=== PATIENT | male | born 1955 | race Two or more races ===

== ENCOUNTER 2023-02-06 13:21 | Observation (INO) | payer MEDICARE, OTHER ==
--- NOTE | 2023-02-06 13:54 | ED Physician Documentation ---
History of Present Illness - Stated complaint Stated Complaint: FELL,DELUSIONAL - Chief complaint Chief Complaint: General - History obtained from History obtained from: Patient, Family - Additonal information Additional information: 67-year-old gentleman who lives in [place]. A [employer] of [facility]. He has cirrhosis with hepatocellular carcinoma, by history related to Tylenol overuse chronically because of chronic back pain. He has been confused today and fell hitting his head. Daughter, from whom independent history was taken and states this is happened in the past with hypoglycemia, hypokalemia, and/or UTI. PD PAST MEDICAL HISTORY - Present Medications Home Medications: Ambulatory Orders Medication Instructions Recorded Confirmed Levothyroxine [Synthroid] 112 mcg PO QDAC 02/06/23 02/06/23 Omeprazole Magnesium 20 mg PO DAILY PM 02/06/23 02/06/23 Ondansetron HCl 4 mg PO Q6HR PRN 02/06/23 02/06/23 Potassium Chloride 10 meq PO DAILY 02/06/23 02/06/23 metFORMIN [Glucophage] 500 mg PO BIDWM 02/06/23 02/06/23 traMADol [Ultram] 50 mg PO Q4-6H 02/06/23 02/06/23 - Allergies Allergies/Adverse Reactions: Allergies Allergy/AdvReac Type Severity Reaction Status Date / Time No Known Drug Allergies Allergy Verified 02/06/23 13:42 PD ED PE NORMAL - Vitals Vital signs reviewed: Yes - General General: Other (Mildly confused and slow speech but pleasant and cooperative and in no distress.) - HEENT HEENT: PERRL - Neck Neck: Supple, no meningeal sign, No bony TTP - Cardiac Cardiac: RRR, No murmur - Respiratory Respiratory: No respiratory distress, Clear bilaterally - Abdomen Abdomen: Non tender - Neuro Neuro: No motor deficit, No sensory deficit, Other (He does have asterixis) Eye Opening: Spontaneous Motor: Obeys Commands Verbal: Confused GCS Score: 14 Results - Vitals Vitals: Vital Signs - 24 hr 02/06/23 02/06/23 02/06/23 13:28 16:09 17:12 Temperature 37.3 C Heart Rate 78 74 63 Respiratory 19 16 16 Rate Blood Pressure 132/73 H 124/84 H 118/74 O2 Saturation 100 98 100 Oxygen O2 Source Room air - Labs Labs: Laboratory Tests 0902/06/23 02/06/23 13:46 13:56 13:56 WBC 5.2 RBC 4.88 Hgb 15.5 Hct 44.5 MCV 91.2 MCH 31.8 H MCHC 34.8 RDW 13.2 Plt Count 128 L MPV 11.0 Neut # (Auto) 2.2 Lymph # (Auto) 2.3 [place] # (Auto) 0.5 Eos # (Auto) 0.1 Baso # (Auto) 0.1 Absolute Nucleated RBC 0.00 Nucleated RBC % 0.0 PT 12.2 INR 1.1 VBG pH VBG pCO2 VBG pO2 VBG HCO3 VBG Total CO2 VBG O2 Saturation VBG Base Excess Sodium Potassium Chloride Carbon Dioxide Anion Gap BUN Creatinine Estimated GFR (MDRD) Glucose POC Whole Bld Glucose 80 Calcium Magnesium Total Bilirubin AST ALT Alkaline Phosphatase Ammonia Total Protein Albumin Globulin Albumin/Globulin Ratio Lipase Urine Color Urine Clarity Urine pH Ur Specific [place] Urine Protein Urine Glucose (UA) Urine Ketones Urine Occult Blood Urine Nitrite Urine Bilirubin Urine Urobilinogen Ur Leukocyte Esterase Ur Microscopic Review Urine Culture Comments Ethyl Alcohol 02/06/23 02/06/23 02/06/23 13:56 13:56 14:50 WBC RBC Hgb Hct MCV MCH MCHC RDW Plt Count MPV Neut # (Auto) Lymph # (Auto) Stafford # (Auto) Eos # (Auto) Baso # (Auto) Absolute Nucleated RBC Nucleated RBC % PT INR VBG pH VBG pCO2 VBG pO2 VBG HCO3 VBG Total CO2 VBG O2 Saturation VBG Base Excess Sodium 143 Potassium 3.8 Chloride 115 H Carbon Dioxide 18 L Anion Gap 10.0 BUN 8 Creatinine 0.7 Estimated GFR (MDRD) 112 Glucose 94 POC Whole Bld Glucose Calcium 9.7 Magnesium 1.9 Total Bilirubin 1.6 H AST 52 H ALT 29 Alkaline Phosphatase 182 H Ammonia 108.3 H* Total Protein 7.7 Albumin 3.9 Globulin 3.8 Albumin/Globulin Ratio 1.0 Lipase 140 H Urine Color YELLOW Urine Clarity CLEAR Urine pH 7.0 Ur Specific [place] 1.010 Urine Protein NEGATIVE Urine Glucose (UA) NEGATIVE Urine Ketones NEGATIVE Urine Occult Blood NEGATIVE Urine Nitrite NEGATIVE Urine Bilirubin NEGATIVE Urine Urobilinogen 0.2 (NORMAL) Ur Leukocyte Esterase NEGATIVE Ur Microscopic Review NOT INDICATED Urine Culture Comments NOT INDICATED Ethyl Alcohol < 10.0 02/06/23 16:50 WBC RBC Hgb Hct MCV MCH MCHC RDW Plt Count MPV Neut # (Auto) Lymph # (Auto) [place] # (Auto) Eos # (Auto) Baso # (Auto) Absolute Nucleated RBC Nucleated RBC % PT INR VBG pH 7.449 H VBG pCO2 27.9 L VBG pO2 45.0 VBG HCO3 18.9 L VBG Total CO2 19.8 L VBG O2 Saturation 82.3 H VBG Base Excess -3.4 L Sodium Potassium Chloride Carbon Dioxide Anion Gap BUN Creatinine Estimated GFR (MDRD) Glucose POC Whole Bld Glucose Calcium Magnesium Total Bilirubin AST ALT Alkaline Phosphatase Ammonia Total Protein Albumin Globulin Albumin/Globulin Ratio Lipase Urine Color Urine Clarity Urine pH Ur Specific [place] Urine Protein Urine Glucose (UA) Urine Ketones Urine Occult Blood Urine Nitrite Urine Bilirubin Urine Urobilinogen Ur Leukocyte Esterase Ur Microscopic Review Urine Culture Comments Ethyl Alcohol PD Medical Decision Making - ED course ED course: 67-year-old gentleman with known cirrhosis [place] presents with confusions, delusions. He has clinical evidence of hepatic encephalopathy with asterixis and his work-up here shows a normal CBC, normal INR, chemistry panel with only mild signs of cirrhosis but does have significant elevation in his ammonia level and mild elevation in his lipase. Urinalysis and blood alcohol levels were normal/negative. He is not too encephalopathic here but is unsteady on his feet and lives in a two-story house here and seems reasonable to put him in the hospital for clearance of his hepatic encephalopathy. Discussed with the daughter they may want to have him go back to [place] sooner rather than later as his hepatologists are there. Called to Dr. Mcmahan for admission at 4:[address] Mcmahan did request a VBG as if he were acidotic it would portend a more prolonged hospital course. Departure - Departure Disposition: ED Place in Observation Clinical Impression: Hepatic encephalopathy Condition: Stable Forms: PCP List
[2023-02-06 14:02] LABS: BASOPHILS # (AUTO) 0.1 10^3/uL (0.0-0.1); BASOPHILS % (AUTO) 1.2 %; EOSINOPHILS # (AUTO) 0.1 10^3/uL (0.0-0.7); EOSINOPHILS % (AUTO) 2.3 %; HCT - HEMATOCRIT 44.5 % (42.0-52.0); HGB - HEMOGLOBIN 15.5 g/dL (14.0-18.0); LYMPHOCYTES # (AUTO) 2.3 10^3/uL (1.5-3.5); LYMPHOCYTES % (AUTO) 44.2 %; MEAN CORPUSCULAR HEMOGLOBIN 31.8 pg (27.0-31.0); MEAN CORPUSCULAR HGB CONC 34.8 g/dL (32.0-36.0); MEAN CORPUSCULAR VOLUME 91.2 fL (80.0-94.0); MONOCYTES # (AUTO) 0.5 10^3/uL (0.0-1.0); MONOCYTES % (AUTO) 9.5 %; NEUTROPHILS # (AUTO) 2.2 10^3/uL (1.5-6.6); NEUTROPHILS % (AUTO) 42.8 %; PLT - PLATELET COUNT 128 10^3/uL (130-450); RED BLOOD COUNT 4.88 10^6/uL (4.70-6.10); RED CELL DISTRIBUTION WIDTH 13.2 % (12.0-15.0); WHITE BLOOD COUNT 5.2 x10^3/uL (4.8-10.8)
[2023-02-06 14:12] LABS: INR 1.1 (0.8-1.2); PT - PROTHROMBIN TIME 12.2 secs (9.9-12.6)
[2023-02-06 14:21] LABS: ALBUMIN 3.9 g/dL (3.2-5.5); ALKALINE PHOSPHATASE 182 IU/L (42-121); ALT ALANINE AMINOTRANSFERASE 29 IU/L (10-60); AST ASPARTATE AMINOTRANSFERASE 52 IU/L (10-42); BILIRUBIN,TOTAL 1.6 mg/dL (0.2-1.0); BUN - BLOOD UREA NITROGEN 8 mg/dL (6-20); CALCIUM 9.7 mg/dL (8.5-10.3); CARBON DIOXIDE - CO2 18 mmol/L (21-32); CHLORIDE 115 mmol/L (101-111); CREATININE 0.7 mg/dL (0.6-1.3); ETOH - ETHANOL < 10.0 mg/dL; GFR - MDRD 112 (>89); GLUCOSE 94 mg/dL (74-104); LIPASE 140 U/L (11-82); MAGNESIUM 1.9 mg/dL (1.7-2.3); POTASSIUM 3.8 mmol/L (3.5-4.5); SODIUM 143 mmol/L (135-145); TOTAL PROTEIN 7.7 g/dL (6.4-8.9)
[2023-02-06 15:09] LABS: BILIRUBIN,URINE NEGATIVE (NEGATIVE); GLUCOSE, URINE (UA) NEGATIVE (NEGATIVE); KETONES,URINE (UA) NEGATIVE (NEGATIVE); LEUKOCYTE ESTERASE, URINE NEGATIVE (NEGATIVE); NITRITE,URINE NEGATIVE (NEGATIVE); OCCULT BLOOD,URINE NEGATIVE (NEGATIVE); PROTEIN,URINE NEGATIVE (NEGATIVE); UROBILINOGEN,URINE 0.2 (NORMAL) E.U./dL (NORMAL)
[2023-02-06] MEDS ORDERED: LACTULOSE 10 GM /15 ML UDC PO STA (15:14)
[2023-02-06 15:17] LABS: CLARITY,URINE CLEAR (CLEAR)
--- NOTE | 2023-02-06 16:17 | CT Report ---
PROCEDURE: HEAD WO INDICATIONS: ams TECHNIQUE: Noncontrast 4.5 mm thick angled axial sections acquired from the foramen magnum to the vertex. For r adiation dose reduction, the following was used: automated exposure control, adjustment of mA and/or kV according to patient size. COMPARISON: None. FINDINGS: Image quality: Excellent. CSF spaces: Basal cisterns are patent. No extra-axial fluid collections. Ventricles are normal in size and shape. Brain: No midline shift. No intracranial masses or hemorrhage. Scott-white matter interface is norm al. Skull and face: Calvarium and visualized facial bones are intact, without suspicious lesions. Sinuses: Visualized sinuses and mastoids are clear. IMPRESSION: 1. No acute intracranial process. Reviewed by: Evelyn Gabriel MD on 02/06/2023 4:16 PM PDT Approved by: Evelyn Gabriel MD on 02/06/2023 4:16 PM PDT Station ID: [id number]
[2023-02-06 16:55] LABS: VBG BASE EXCESS -3.4 mmol/L (-2 - +2); VBG HCO3 18.9 mmol/L (23-28); VBG OXYGEN SATURATION 82.3 % (60-80); VBG PCO2 27.9 mmHg (41-51); VBG PH 7.449 (7.31-7.41); VBG TOTAL CO2 19.8 mmol/L (24-29)
[2023-02-06] MEDS ORDERED: SODIUM CHLORIDE FLUSH 0.9% 10 ML SYRINGE IVP PRN (16:57)
[2023-02-06] MEDS ORDERED: ONDANSETRON 4 MG/2 ML VIAL IVP PRN (16:57)
--- NOTE | 2023-02-06 17:09 | HISTORY & PHYSICAL EXAMINATION ---
Chief Complaint - Chief Complaint Chief Complaint: Confused, fell at home History of Present Illness - Admitted From Admitted From:: ED - History Obtained From History obtained from: ED provider - History of Present Illness HPI Comment/Other: This is a 67-year-old male of [facility] origin who lives in [place] and is visiting here. He has a history of cirrhosis and hepatic carcinoma from Tylenol overuse. 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 There is presumably a history of diabetes since he takes metformin and presumably a history of hypothyroidism since he takes Synthroid. He was brought in today after he was more confused than normal and fell at home. The daughter gave the entire history. She says when he is confused like this in the past he has had hypokalemia, low glucose levels or a UTI. The patient cannot remember how he fell and does not realize that he is more confused, when I speak to him. He has normal potassium, glucose levels and UA here. He was found to have mild elevation of LFTs and lipase and a very high serum ammonia level of 108. His electrolytes show a low bicarb of 18 but VBG shows normal pH of 7.44. The ED provider spoke to me about this patient. He will be placed in Observation status to manage his confusion presumably from hepatic encephalopathy and be evaluated for causes for his fall. History - Past Medical History Cardiovascular: reports: None Respiratory: reports: None Neuro: reports: Other (Prior confusion, possibly prior hepatic encephalopathy) Endocrine/Autoimmune: reports: Type 2 diabetes, HyPOthyroidism GI: reports: Cirrhosis, Other (Hepatic CA) : reports: None HEENT: reports: None Psych: reports: None Musculoskeletal: reports: None Derm: reports: None - Family & Social History Living arrangement: At home Living Situation: With spouse/s.o. Social History Notes: He quit smoking 20 years ago. He quit drinking alcohol 30 years ago. Meds/Allgy - Home Medications Home Medications: Ambulatory Orders Medication Instructions Recorded Confirmed Levothyroxine [Synthroid] 112 mcg PO QDAC 02/06/23 02/06/23 Omeprazole Magnesium 20 mg PO DAILY PM 02/06/23 02/06/23 Ondansetron HCl 4 mg PO Q6HR PRN 02/06/23 02/06/23 Potassium Chloride 10 meq PO DAILY 02/06/23 02/06/23 metFORMIN [Glucophage] 500 mg PO BIDWM 02/06/23 02/06/23 traMADol [Ultram] 50 mg PO Q4-6H 02/06/23 02/06/23 - Allergies Allergies/Adverse Reactions: Allergies Allergy/AdvReac Type Severity Reaction Status Date / Time No Known Drug Allergies Allergy Verified 02/06/23 13:42 Review of Systems - All Other Systems All Other Systems: reports: Other (Only symptoms that are available are as per HPI, given by the daughter. Pt tells me he "cannot remember".) Exam - Vital Signs Vital Signs: Vital Signs x48h Temp Pulse Resp BP Pulse Ox 02/06/23 16:09 74 16 124/84 H 98 02/06/23 13:28 37.3 C 78 19 132/73 H 100 - Physical Exam General Appearance: positive: No acute distress, Alert Eyes Bilateral: positive: Normal inspection, EOMI, Other (Icteric) ENT: positive: ENT inspection nml, No signs of dehydration Neck: positive: Nml inspection, No JVD Respiratory: positive: Chest non-tender, No respiratory distress Cardiovascular: positive: Regular rate & rhythm, No murmur Abdomen: positive: No organomegaly, Nml bowel sounds, No distention Skin: positive: Warm, Dry Extremities: positive: Non-tender, No pedal edema Neurologic/Psychiatric: positive: Oriented x3, Motor nml, Other (Poor memory. (+) Astrixis. No nystagmus.) Conclusion/Plan - Problem List (1) Hepatic encephalopathy Conclusion/Plan: The patient was given a dose of lactulose 10 g p.o. x1 in the ER. He has asterixis plus confusion consistent with moderate hepatic encephalopathy but has no ascites, hypoxia, hemodynamic instability Plan: We will plan to continue with lactulose daily Follow ammonia level daily Follow electrolytes and liver tests daily Orthostatic VS checks and PT eval, given his fall at home (2) DM type 2 (diabetes mellitus, type 2) Conclusion/Plan: Plan: Hold the metformin for now especially given the low bicarb We will order fingerstick checks, hypoglycemia protocol, sliding scale insulin and check his A1c (3) Hypothyroidism Conclusion/Plan: Plan: I will check his TSH to assure he is on adequate thyroid replacement. Continue his home thyroid medicine (4) Fall at home Conclusion/Plan: There is no family at bedside to obtain details of how he fell Plan: Orthostatic vital sign checks every shift PT evaluation ordered - Lab Results Fish Bones: 02/06/23 13:56 02/07/23 05:27
[2023-02-06] MEDS: SODIUM CHLORIDE FLUSH 0.9% 10 ML SYRINGE IVP SCH (17:26)
[2023-02-06] MEDS: INSULIN LISPRO 300 UNIT/3 ML PEN SUBQ SCH (21:10)
[2023-02-07] MEDS: SODIUM CHLORIDE FLUSH 0.9% 10 ML SYRINGE IVP SCH ×2 (01:12→08:37)
[2023-02-07 05:59] LABS: ALBUMIN 3.5 g/dL (3.2-5.5); BILIRUBIN,DIRECT 0.53 mg/dL (0.03-0.18); BILIRUBIN,TOTAL 1.7 mg/dL (0.2-1.0); CALCIUM 9.1 mg/dL (8.5-10.3); CREATININE 0.7 mg/dL (0.6-1.3); POTASSIUM 3.3 mmol/L (3.5-4.5)
[2023-02-07 06:12] LABS: THYROID STIMULATING HORMONE 1.32 uIU/mL (0.34-5.60)
[2023-02-07] MEDS ORDERED: PANTOPRAZOLE 40 MG TABLET PO SCH (07:00)
[2023-02-07] MEDS ORDERED: LEVOTHYROXINE 112 MCG TABLET PO SCH (07:00)
[2023-02-07] MEDS ORDERED: POTASSIUM CHLORIDE 10 MEQ CAPSULE PO SCH (08:00)
[2023-02-07] MEDS: INSULIN LISPRO 300 UNIT/3 ML PEN SUBQ SCH ×2 (08:35→12:44)
[2023-02-07] MEDS ORDERED: LACTULOSE 10 GM /15 ML UDC PO SCH ×2 (09:00→12:00)
[2023-02-07 11:19] LABS: ESTIMATED AVERAGE GLUCOSE 114 mg/dL (70-100); HEMOGLOBIN A1c% 5.6 % (4.27-6.07)
--- NOTE | 2023-02-07 12:16 | PHARMACY PROGRESS NOTE ---
- Best Possible Medication History Admit Date and Time: 02/06/23 2420 Processed by: Pharmacy Medication History completed: Yes Patient Interview: Completed Secondary Source(s): Spouse/Significant other, Other family member, Insurance records ([facility] DONE WITH PT. DAUGHTER AND WERE ALSO IN THE ROOM AND DAUGHTER CONFIRMED MEDS WHICH SHE HAD ON HER PHONE. PT WAS PLEASANT AND FUNNY. HAS HX OF THYROID CANCER AND LIVER CANCER. MOST RECENT CHEMO COURSE FINISHED SEPTEMBER 2022 IN [place] WITH .) As the person ultimately responsible for medication therapy, providers are able to order a medication from an existing home medication list in [facility] via the "Reconcile Routine" prior to Confirmation of that medication by arch support maker. Such practice is discouraged except when the physician, in their clinical judgment, deems that a medical need exists for a medication without regard to previous use.
--- NOTE | 2023-02-07 13:47 | Discharge Plan ---
Discharge Plan Problem Reviewed?: Yes Disposition: Home, Self Care Condition: Fair Prescriptions: Lactulose [Enulose] 10 gm PO BID #30 ea Diet: Diabetic Activity Restrictions: Activity as Tolerated Shower Restrictions: No Driving Restrictions: Yes (No driving due to poor memory) Health Concerns: You were hospitalized to evaluate and manage confusion, fogginess and you fell at home. You were not dehydrated, your blood pressure was not low, when you were seen by physical therapist today, she found your ambulation was steady. But we did find that you have a very high ammonia level which can give these symptoms. You have been started on Lactulose, to treata the high ammonia level, and you are being discharged on this medication. The new prescription was electronically sent to the [facility] here in [place]. I tried to reach Cathy Rodrigez, the liver client project coordinator at the number you provided, but it just goes to voicemail, so I cannot get information about whether you had a high ammonia level in your past. It is advised that you return to [place] and be seen by your liver transplant specialist soon, because of this hospitalization. Please report that you get cyclical, every 4- week, similar trouble, and discuss the finding of high ammonia level (of 108). If you get fingerstick glucose levels in the 80-99 range or lower, that is too low for you, and may be adding to your confusion and fogginess. You may therefore take half of your usual Metformin dose, twice a day. This should also be okayed by your primary care doctor in [place]. Plan of Treatment: As above. Care Goals: Improvement in symptoms and stabilization are the goals. Assessment: The patient understands and is agreeable with the plan. In the room, were also his and daughter, who was translating and every understood the rec ommendations. Additional Instructions or Follow Up instructions: If you have new or worsening symptoms, you can call your PCP or liver specialist, even while in [facility], for advice, or come to the closest ER. No Smoking: If you smoke, Please STOP! Call for help.
--- NOTE | 2023-02-07 15:23 | DISCHARGE SUMMARY ---
Discharge Summary Admit Date: 02/06/23 Discharge Date: 02/07/23 Discharging Provider: Dr Sarah Mcmahan Primary Care Provider: In [place] Condition at Discharge: Fair Discharge Disposition: 01 Home, Self Care - HPI History of Present Illness: This is a 67-year-old male of [place] origin who lives in [place] and is visiting here. He has a history of cirrhosis and hepatic carcinoma from Tylenol overuse. 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 There is presumably a history of diabetes since he takes metformin and presumably a history of hypothyroidism since he takes Synthroid. He was brought in today after he was more confused than normal and fell at home. The daughter gave the entire history. She says when he is confused like this in the past he has had hypokalemia, low glucose levels or a UTI. The patient cannot remember how he fell and does not realize that he is more confused, when I speak to him. He has normal potassium, glucose levels and UA here. He was found to have mild elevation of LFTs and lipase and a very high serum ammonia level of 108. His electrolytes show a low bicarb of 18 but VBG shows normal pH of 7.44. The ED provider spoke to me about this patient. He will be placed in Observation status to manage his confusion presumably from hepatic encephalopathy and be evaluated for causes for his fall. - HOSPITAL COURSE Hospital Course: (1) Hepatic encephalopathy He had asterixis plus confusion, consistent with moderate hepatic encephalopathy but had no ascites, or elevated LFTs. His ammonia level, however, was 108. The daughter told me that she never heard discussion about an elevated ammonia level from his liver specialist in [place]. I tried to contact the provider and only got a voicemail. The daughter reported that he seems to get cyclical fogginess, it happens about each month, he worsens for several days until he is quite confused and then he has improvement, and this pattern has been going on for months. The patient was given a dose of Lactulose 10 g p.o. in the ER, and was continued on Lactulose BID and after discharge. By the following morning he was alert, oriented, had no tremors, and had very good recall. (2) Fall at home His daughter described the event: he was getting up from the toilet and fell to the side then backward into the tub. There was no loss of consciousness. His heard the fall and came to him immediately. The family monitored him for a while at home, his glucose was 111. Eventually he was brought to the ER by family because of persistent confusion. After admission, his orthostatic vital signs were normal here, glu were 110-150, and the following day he was not confused and walked normally during a PT evaluation. (3) DM type 2 (diabetes mellitus, type 2) He was on diabetic diet here. His A1c came back at 5.6, indicating excessively tight control. The patient reported that, when he does not have a UTI, his fasting fingerstick glucoses run 80-110. This is felt to be too low. I nadir mmended he take just half of his Metformin twice daily, so 250 mg BID and to discuss this with his PCP. (4) Hypothyroidism His TSH was good at 1.32, signifying adequate thyroid replacement. (5) Liver cancer Follow-up will be in [place] with his liver transplant provider, Dr. Gabriela River, and coordinator Cathy Rodrigez ([phone], ext [phone]). - ALLERGIES Allergies/Adverse Reactions: Allergies Allergy/AdvReac Type Severity Reaction Status Date / Time No Known Drug Allergies Allergy Verified 02/06/23 13:42 - MEDICATIONS Home Medications: Ambulatory Orders Medication Instructions Recorded Confirmed Levothyroxine [Synthroid] 112 mcg PO QDAC 02/06/23 02/06/23 Omeprazole Magnesium 20 mg PO BIDAC 02/06/23 02/07/23 Ondansetron HCl 4 mg PO Q6HR PRN 02/06/23 02/06/23 Potassium Chloride 30 meq PO DAILY 02/06/23 02/07/23 metFORMIN [Glucophage] 500 mg PO BIDWM 02/06/23 02/06/23 Lactulose [Enulose] 10 gm PO BID #30 ea 02/07/23 Multivitamin W/Minerals [Theragran 1 each PO DAILY 02/07/23 02/07/23 M] - PHYSICAL EXAM AT DISCHARGE General Appearance: positive: No acute distress, Alert Eyes Bilateral: positive: Normal inspection, EOMI ENT: positive: ENT inspection nml, No signs of dehydration Neck: positive: Nml inspection, No JVD Respiratory: positive: No respiratory distress, Breath sounds nml Cardiovascular: positive: Regular rate & rhythm, No murmur Abdomen: positive: Non-tender, No organomegaly, Nml bowel sounds, No distention Skin: positive: Warm, Dry Extremities: positive: Non-tender, No pedal edema Neurologic/Psychiatric: positive: Oriented x3, Motor nml - LABS Result Diagrams: 02/06/23 13:56 02/07/23 05:27 - FOLLOW UP Follow Up: See PCP and liver specialist in [place]. - TIME SPENT Time Spent in Discharge (Minutes): 40
[2023-02-07 16:17] VITALS: BP 111/64; O2SAT 100
== END 2023-02-07 19:20 | disposition home or self-care (01) ==
LOC: EDBD → ED 13:21 → MS2 16:58
PROVIDERS: ADMIT Internal Medicine; ATTEND Internal Medicine
DX: K76.82 Hepatic encephalopathy (principal); C22.0 Liver cell carcinoma; K74.60 Unspecified cirrhosis of liver; E11.9 Type 2 diabetes mellitus without complications; E03.9 Hypothyroidism, unspecified; Z79.84 Long term (current) use of oral hypoglycemic drugs; Z79.890 Hormone replacement therapy; Z79.899 Other long term (current) drug therapy; Z87.891 Personal history of nicotine dependence; Z91.81 History of falling
CPT/HCPCS: 36415; 70450; 80048; 80053; 80076; 81003; 82140; 82803; 83036; 83690; 83735; 84443; 85025; 85610; 97116; 97161; 99284; 99285; A9270; G0378; G0480; 80320; 81001; 87086